=== PATIENT | male | born 1985 | race African-American/Black ===

== ENCOUNTER 2018-03-24 07:55 | Emergency (ER) | payer SELFPAY | END 2018-03-24 08:56 | disposition home or self-care (01) | LOC: BURERS 07:55 | DX: J06.9 Acute upper respiratory infection, unspecified (principal) | CPT/HCPCS: 87081; 87430; 87804; 99283 ==

== ENCOUNTER 2018-04-20 18:26 | Emergency (ER) | payer SELFPAY ==
[2018-04-20] MEDS ORDERED: Ondansetron ODT 4 MG TAB ONE (18:56)
[2018-04-20] MEDS ORDERED: Azithromycin 250 MG TAB ONE (19:28)
== END 2018-04-20 19:40 | disposition home or self-care (01) ==
LOC: BURERS 18:26
DX: J01.90 Acute sinusitis, unspecified (principal)
CPT/HCPCS: 87804; 99283; Q0162

== ENCOUNTER 2019-04-08 06:29 | Emergency (ER) | payer SELFPAY ==
[2019-04-08] MEDS ORDERED: Cyclobenzaprine 10 MG TAB ONE (06:45)
[2019-04-08] MEDS ORDERED: Ibuprofen 800 MG TAB ONE (06:45)
== END 2019-04-08 06:45 | disposition home or self-care (01) ==
LOC: BURERS 06:29
DX: M54.5 Low back pain (principal)
CPT/HCPCS: 99283